=== PATIENT | male | born 1965 ===

== ENCOUNTER 2018-02-07 01:41 | Emergency (ER) | payer OTHER ==
[2018-02-07 01:58] VITALS: O2SAT 98
[2018-02-07] MEDS ORDERED: Bacitracin 500 Units/gm Oint Foilpak UD TOP ONE (02:03)
[2018-02-07] MEDS ORDERED: Lidocaine 2% Inj (20ml) INFIL ONE (02:03)
[2018-02-07] MEDS ORDERED: Lidocaine 2% MPF (5 ml) Inj ONE ×2 (02:18→03:02)
[2018-02-07] MEDS ORDERED: Bacitracin 500 Units/gm Oint Foilpak UD ONE (03:56)
--- NOTE | 2018-02-07 04:01 | C.PDOC ---
History Of Present Illness 52 year old male presents to the ED for evaluation of laceration to his right palm and right fifth finger. Patient reports that today at 19:00 he fell and landed on broken glass sustaining the lacerations. Patient denies other injury, fall, trauma, weakness, numbness. Time Seen by Provider: 02/07/18 01:52 Chief Complaint (Nursing): Abnormal Skin Integrity History Per: Patient History/Exam Limitations: no limitations Onset/Duration Of Symptoms: Hrs Current Symptoms Are (Timing): Still Present Location Of Injury: Right: Hand, Anterior: Hand Quality Of Symptoms: Painful Recent travel outside of the [place]: No Additional History Per: Patient Past Medical History Reviewed: Historical Data, Nursing Documentation, Vital Signs Vital Signs: Last Vital Signs Temp 98.3 F 02/07/18 01:51 Pulse 74 02/07/18 01:51 Resp 24 02/07/18 01:51 BP 112/76 02/07/18 01:51 Pulse Ox 98 02/07/18 04:04 - Medical History PMH: No Chronic Diseases Surgical History: No Surg Hx Family History: States: Unknown Family Hx - Social History Hx Alcohol Use: No Hx Substance Use: No - Immunization History Hx Tetanus Toxoid Vaccination: Yes (this year he stated) Hx Influenza Vaccination: No Hx Pneumococcal Vaccination: No Review Of Systems Constitutional: Negative for: Fever, Chills Cardiovascular: Negative for: Chest Pain, Palpitations Gastrointestinal: Negative for: Nausea, Vomiting Musculoskeletal: Positive for: Hand Pain Skin: Positive for: Other (laceration) Neurological: Negative for: Weakness, Numbness Physical Exam - Physical Exam Appears: Non-toxic, No Acute Distress Skin: Warm, Dry, Other (proximal right palm 5 cm laceration, with skin falling off. Distal right 5th finger 1.5 cm laceration. No active bleeding) Head: Atraumatic, Normacephalic Eye(s): bilateral: Normal Inspection Extremity: Normal ROM (right hand, fingers), No Tenderness, Capillary Refill (< 2 seconds), No Swelling Pulses: Left Radial: Normal, Right Radial: Normal Neurological/Psych: Oriented x3, Normal Speech, Normal Cognition, Normal Motor, Normal Sensation Gait: Steady ED Course And Treatment O2 Sat by Pulse Oximetry: 98 (ON RA) Pulse Ox Interpretation: Normal Laceration - Laceration Repair proximal right palm Wound Length (In cm): 5 Description Of Wound: Linear Wound Cleansed With: Betadine, Sterile Saline Anesthesia: Lidocaine 2% Wound Examination: Irrigated With Saline, No FB With Wound Exploration Wound Debridement/Revision: Wound Debrided, Wound Margins Revised Wound Closure: Suture (x12) Wound Complexity: Simple Distal right 5th finger Wound Length (In cm): 1.5 Description Of Wound: Linear Wound Cleansed With: Betadine, Sterile Saline Anesthesia: Lidocaine 2% Wound Examination: Irrigated With Saline, No FB With Wound Exploration Wound Closure: Suture (x5) Wound Complexity: Simple Medical Decision Making Medical Decision Making: Plan: * Bacitracin * Keflex 500 mg PO * Lidocaine 2 % Disposition - Disposition Forms: [employer] ([place]) - PA / [employer] [place] / Resident Statement MD/DO has reviewed & agrees with the documentation as recorded. - Scribe Statement The provider has reviewed the documentation as recorded by the Scribe Dutch Knox All medical record entries made by the Scribe were at my direction and personally dictated by me. I have reviewed the chart and agree that the record accurately reflects my personal performance of the history, physical exam, medical decision making, and the department course for this patient. I have also personally directed, reviewed, and agree with the discharge instructions and disposition.
[2018-02-07 04:52] VITALS: BP 123/81; PULSE 75; RESP 16; TEMP 98
== END 2018-02-07 04:52 | disposition home or self-care (01) ==
LOC: C.ER 01:41
DX: S61.411A Laceration without foreign body of right hand, initial encounter (principal); S61.216A Laceration without foreign body of right little finger without damage to nail, initial encounter; W18.30XA Fall on same level, unspecified, initial encounter

== ENCOUNTER 2018-02-18 18:57 | Emergency (ER) | payer OTHER ==
--- NOTE | 2018-02-18 20:24 | C.PDOC ---
History Of Present Illness 52 year old male presents to the ED for suture removal on his right hand and wrist that were done 14 days ago. Patient denies fever, chills, new injury, fall , trauma. Time Seen by Provider: 02/18/18 19:32 Chief Complaint (Nursing): Suture/Staple Removal History Per: Patient History/Exam Limitations: no limitations Onset/Duration Of Symptoms: Days Ago (14) Current Symptoms Are (Timing): Better Location Of Injury: Right: Hand Recent travel outside of the [place]: No Additional History Per: Patient Past Medical History Reviewed: Historical Data, Nursing Documentation, Vital Signs Vital Signs: Last Vital Signs Temp 98.0 F 02/18/18 20:30 Pulse 80 02/18/18 20:30 Resp 18 02/18/18 20:30 BP 120/80 02/18/18 20:30 Pulse Ox 97 02/19/18 05:31 - Medical History PMH: No Chronic Diseases Surgical History: No Surg Hx Family History: States: Unknown Family Hx - Social History Hx Alcohol Use: No Hx Substance Use: No - Immunization History Hx Tetanus Toxoid Vaccination: Yes (this year he stated) Hx Influenza Vaccination: No Hx Pneumococcal Vaccination: No Review Of Systems Constitutional: Negative for: Fever Musculoskeletal: Negative for: Hand Pain Neurological: Negative for: Weakness, Numbness Physical Exam - Physical Exam Appears: Non-toxic, No Acute Distress Skin: Normal Color, Warm, Dry Head: Atraumatic, Normacephalic Eye(s): bilateral: Normal Inspection Extremity: Normal ROM, No Tenderness, Capillary Refill (< 2 seconds), No Swelling, Other ( healed- appearing sutures with scab to right hand and wrist) Pulses: Left Radial: Normal, Right Radial: Normal Neurological/Psych: Oriented x3, Normal Speech, Normal Motor, Normal Sensation Gait: Steady ED Course And Treatment O2 Sat by Pulse Oximetry: 97 (ON RA) Pulse Ox Interpretation: Normal Progress Note: On reassessment, patient is resting comfortably, and is in no acute distress. Patient was instructed in wound care. Disposition Counseled Patient/Family Regarding: Need For Followup - Disposition Referrals: Koko Linares MD [Medical Doctor] - Disposition: HOME/ ROUTINE Disposition Time: 20:22 Condition: STABLE Additional Instructions: Apply neosporin ointment Keep area clean Return to ER if worse Forms: [employer] ([place]) - Clinical Impression Clinical Impression: Removal of suture - PA / [employer]PER[employer] / Resident Statement MD/DO has reviewed & agrees with the documentation as recorded. - Scribe Statement The provider has reviewed the documentation as recorded by the Scribe Dutch Knox All medical record entries made by the Scribe were at my direction and personally dictated by me. I have reviewed the chart and agree that the record accurately reflects my personal performance of the history, physical exam, medical decision making, and the department course for this patient. I have also personally directed, reviewed, and agree with the discharge instructions and disposition.
[2018-02-18 20:31] VITALS: BP 120/80; PULSE 80; RESP 18; TEMP 98
[2018-02-19 00:52] VITALS: O2SAT 97
== END 2018-02-18 20:31 | disposition home or self-care (01) ==
LOC: C.ER 18:57
DX: Z48.02 Encounter for removal of sutures (principal)